=== PATIENT | male | born 1945 | race Caucasian/White ===

== ENCOUNTER 2017-09-07 08:00 | Day surgery (SDC) | payer OTHER ==
[~2017-09-07 08:00] MED LIST: ATORVASTATIN CA40 MG PO; OMEGA-3100 MG PO; PANADOL EXTRA500 MG PO
== END 2017-09-07 14:15 | disposition home or self-care (01) ==
LOC: AMB-ENDOS 08:00
DX: C19 Malignant neoplasm of rectosigmoid junction (principal); K64.1 Second degree hemorrhoids; I11.0 Hypertensive heart disease with heart failure; I50.20 Unspecified systolic (congestive) heart failure; D50.0 Iron deficiency anemia secondary to blood loss (chronic); E78.4 Other hyperlipidemia; R73.01 Impaired fasting glucose